=== PATIENT | female | born 1995 | race Caucasian/White ===

== ENCOUNTER 2016-05-29 18:40 | Emergency (ER) | payer OTHER ==
--- NOTE | 2016-05-29 20:20 | CT ---
Name: MARYLOU BLACK Exam: CT head without contrast Comparison: None Clinical history: Trauma Technique: Helical CT was performed through the head. Angled axial reconstructions were obtained. Sagittal and coronal reconstructions were obtained as well. No contrast was given. An automated dose reduction technique was used to minimize patient radiation dose. Findings: There is no shift of the midline structures. Ventricles are of normal size and configuration. There is no mass, mass effect or hemorrhage. Cisterns are uneffaced. Posterior fossa is unremarkable. There is no fracture. Visualized paranasal sinuses and mastoid air cells are within normal limits. Impression: Negative unenhanced CT of head Note: The above report was uploaded to [facility]'s electronic medical records system at 2016 hours.
--- NOTE | 2016-05-29 20:22 | CT ---
Name: MARYLOU BLACK Exam: CT of the cervical spine without contrast Comparison: None. Clinical history: Pain. Trauma Procedure: Helical CT using multidetector technique was applied to the cervical spine. No contrast was given. Sagittal, axial and coronal images are submitted. And automated dose reduction technique was used to minimize patient radiation dose. Findings: Bone density is normal. Vertebral body alignment is within normal limits. There is no fracture or suspicious disc space narrowing. The odontoid is intact. An acute disc is not appreciated on this exam. Perivertebral soft tissues are within normal limits. Impression: Negative CT of the cervical spine Note: The above report was uploaded to [facility]'s electronic medical records system at 2018 hours.
[2016-05-29] MEDS ORDERED: IBUPROFEN 600 MG TABLET ONE (20:28)
[2016-05-29] MEDS ORDERED: ACETAMINOPHEN 325 MG TABLET ONE (20:28)
[2016-05-29] MEDS ORDERED: DIAZEPAM 5 MG TABLET ONE (20:29)
== END 2016-05-29 20:46 | disposition home or self-care (01) ==
LOC: ED 18:40
DX: M79.601 Pain in right arm (principal); M54.2 Cervicalgia; R20.0 Anesthesia of skin; E10.9 Type 1 diabetes mellitus without complications; Z79.4 Long term (current) use of insulin; V43.52XA Car driver injured in collision with other type car in traffic accident, initial encounter; W22.11XA Striking against or struck by driver side automobile airbag, initial encounter; Y92.410 Unspecified street and highway as the place of occurrence of the external cause
CPT/HCPCS: 72125; 70450; 99283 ×2; A9270 ×3